=== PATIENT | female | born 1960 | race Caucasian/White ===

== ENCOUNTER 2018-10-05 09:22 | Emergency (ER) | payer OTHER ==
[~2018-10-05] VITALS: Ht 167.6 cm; Wt 62.0 kg
[~2018-10-05 09:22] MED LIST: AZAT50TA9 PO; DIPH1TAB PO; GABA-826 PO; LEVO75TA5 PO; LORA0.5T PO; MECL-85 PO; ONDA4TAB7 PO; OXYC10TA6 PO; PHEN100C PO; PHEN100C4 PO; PRED1TAB PO; PROP10TA16 PO; QUET25TA5 PO; RIFA550T4 PO; TRAM50TA2 PO
[2018-10-05 09:35] VITALS: BP 114/74
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
--- NOTE | 2018-10-05 10:37 | NUR ---
pt discharged with discharge instructions to follow up with dr. thakkar. pt verbalized understanding. pt educated to elevate arm above heart to help with swelling. pt up ambulatory and stable on feet.
== END 2018-10-05 10:39 | disposition home or self-care (01) ==
LOC: ED 10:09
DX: S60.222A Contusion of left hand, initial encounter (principal); M25.532 Pain in left wrist; M79.645 Pain in left finger(s); G40.909 Epilepsy, unspecified, not intractable, without status epilepticus; M06.9 Rheumatoid arthritis, unspecified; E78.5 Hyperlipidemia, unspecified; Z86.39 Personal history of other endocrine, nutritional and metabolic disease; W01.0XXA Fall on same level from slipping, tripping and stumbling without subsequent striking against object, initial encounter; Y93.89 Activity, other specified; Y92.89 Other specified places as the place of occurrence of the external cause; Y99.8 Other external cause status
CPT/HCPCS: 99282

== ENCOUNTER 2018-11-25 06:48 | Outpatient (CLI) | payer OTHER | END 2018-11-25 23:59 | disposition home or self-care (01) | LOC: CFH 06:48 | PROVIDERS: ATTEND Internal Medicine Gastroenterology | DX: K75.4 Autoimmune hepatitis (principal); K74.69 Other cirrhosis of liver; M81.0 Age-related osteoporosis without current pathological fracture; F31.9 Bipolar disorder, unspecified | CPT/HCPCS: 76705 ==